=== PATIENT | female | born 1980 | race Caucasian/White ===

== ENCOUNTER 2019-05-09 18:15 | Emergency (ER) | payer MEDICAID ==
[~2019-05-09] VITALS: Ht 170.2 cm; Wt 108.0 kg
[2019-05-09 18:18] VITALS: BP_SYST 130
[2019-05-09] MEDS ORDERED: methylPREDNISolone SOD SUCC/PF 62.5 MG/ML VIAL IM ONE (19:15)
[2019-05-09] MEDS ORDERED: IPRATROPIUM/ALBUTEROL SULFATE 3 ML AMPUL.NEB (DUONEB) INH ONE ×2 (19:15→19:30)
[2019-05-09] MEDS ORDERED: AZITHROMYCIN 250 MG TABLET PO ONE (19:30)
[2019-05-09] MEDS ORDERED: IPRATROPIUM/ALBUTEROL SULFATE 3 ML AMPUL.NEB (DUONEB) ONE (19:30)
[2019-05-09] MEDS ORDERED: ALBUTEROL SULFATE 0.083% 2.5 MG/3 ML VIAL.NEB INH ONE (19:30)
[2019-05-09 21:12] VITALS: BP_SYST 122
== END 2019-05-09 21:12 | disposition home or self-care (01) ==
LOC: SED 18:15
DX: J44.1 Chronic obstructive pulmonary disease with (acute) exacerbation (principal); I10 Essential (primary) hypertension; F17.210 Nicotine dependence, cigarettes, uncomplicated; Z71.6 Tobacco abuse counseling
CPT/HCPCS: 94640; 99285; J2930; J7613; J7620; Q0144

== ENCOUNTER 2024-05-11 00:34 | Emergency (ER) | payer MEDICAID ==
[~2024-05-11] VITALS: Ht 167.6 cm; Wt 102.1 kg
[2024-05-11 01:10] VITALS: BP_SYST 134; PULSE 89; RESP 20; TEMP 98.4; O2SAT 99
[2024-05-11] MEDS: LACTULOSE 20 GM/30 ML UDC PO ONE (01:26)
[2024-05-11] MEDS: SODIUM PHOSPHATE,MONO-DIBASIC 133 ML ENEMA RC ONE (01:27)
[2024-05-11] MEDS: NACL 0.9% 1,000 ML IV ONE (01:34)
[2024-05-11 03:25] VITALS: BP_SYST 127; PULSE 70; RESP 18; TEMP 97.6; O2SAT 100
== END 2024-05-11 03:25 | disposition home or self-care (01) ==
LOC: SED 00:34
DX: K59.03 Drug induced constipation (principal); T40.2X5A Adverse effect of other opioids, initial encounter; K62.89 Other specified diseases of anus and rectum; J45.909 Unspecified asthma, uncomplicated; Z98.890 Other specified postprocedural states; Y92.89 Other specified places as the place of occurrence of the external cause
CPT/HCPCS: 99284; 96360; J7030